=== PATIENT | male | born 1950 | race Caucasian/White ===

== ENCOUNTER → 2018-11-26 | Outpatient (CLI) | payer MEDICARE ==
--- NOTE | 2018-11-26 10:41 | Diagnostic Imaging Report ---
EXAMINATION: PA and lateral views of the chest. COMPARISON: None CLINICAL HISTORY: Cough DISCUSSION: The lungs are hyperinflated with increased AP diameter of the chest and flattening of the hemidiaphragms. No airspace consolidation, pleural effusion, or pneumothorax. Bilateral upper lobe pleural-parenchymal scar, right worse then left. Soft tissue density laterally within the right upper lung with questionable defect in the posterior lateral right third rib. Atherosclerotic calcification of the thoracic aorta. Otherwise normal cardiomediastinal contour. Regional skeletal structures are otherwise intact. IMPRESSION: Findings are suspicious for a soft tissue mass lesion in the lateral aspect of the right upper lobe with destructive changes of the adjacent third rib. CT scan of the chest with contrast is suggested for further evaluation. Background emphysematous changes. Findings and recommendations were communicated by telephone to Ms. Jernigan at Dr. Maya's office at 10:30 AM on 11/26/2018. Signed by: Dr. Wilfredo Joshi M.D. on 11/26/2018 10:37 AM
== END ==
LOC: RAD 09:36
PROVIDERS: ATTEND Internal Medicine
DX: R05 Cough (principal)
CPT/HCPCS: 71046

== ENCOUNTER → 2018-12-04 | Outpatient (CLI) | payer MEDICARE ==
[~2018-12-04] MED LIST: IOPAMIDOL 370 MG/ML 200 ML INFUS..BTL INJ ONE; SODIUM CHLORIDE 0.9% 50ML 50 ML ONE
[2018-12-04 12:15] LABS: BLOOD UREA NITROGEN 12 mg/dL (7-26); BUN/CREATININE RATIO 17 (6-25); CREATININE, SERUM 0.69 mg/dL (0.72-1.25); EST GLOMERULAR FILTRATION RATE > 60 ML/MIN (60-)
--- NOTE | 2018-12-04 13:35 | Diagnostic Imaging Report ---
EXAM: CT Chest WITH contrast INDICATION: Right upper lobe lung mass. COMPARISON: Chest radiograph 11/26/2018. TECHNIQUE: Chest was scanned utilizing a multidetector helical scanner from the lung apex through the level of the adrenal glands after administration of IV contrast. Coronal and sagittal reformations were obtained. Routine protocol was performed. IV CONTRAST: 100 mL of Isovue 370 RADIATION DOSE: Total DLP: 390 mGy*cm Dose modulation, iterative reconstruction, and/or weight based adjustment of the mA/kV was utilized to reduce the radiation dose to as low as reasonably achievable. COMPLICATIONS: None FINDINGS: LINES/ TUBES: None. LUNGS AND AIRWAYS: The central airways are patent. There is diffuse mild bronchial wall thickening. There are severe upper lobe predominant centrilobular emphysematous changes of lungs. Corresponding to the opacity seen in the right lung apex on chest radiograph, there are postsurgical changes of wedge resection with chain sutures. No evidence of mass lesion. Mild biapical pleural-parenchymal opacities, suggestive of prior granulomatous disease. Scattered bilateral pulmonary nodules including a 4 mm solid nodule in the right upper lobe on series 3, image 23; a 3 mm right upper lobe nodule along the right major fissure on image 77; a 4 mm subpleural nodule in the right middle lobe on image 102; a 4 mm groundglass nodule in the right lower lobe on image 108; a 4 mm nodular opacity in the left lower lobe on image 126; and a 4 mm left lower lobe nodule on image 115. There is a 4 mm calcified granuloma in the left upper lobe on image 76. PLEURA: The pleural spaces are clear. HEART AND MEDIASTINUM: The thyroid gland is normal. No mediastinal, hilar or axillary lymphadenopathy. 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 Atherosclerotic changes of the aortic arch. Ectatic ascending aorta measuring up to 3.5 cm. Extensive coronary atherosclerosis. No cardiomegaly or pericardial effusion. Small hiatal hernia. UPPER ABDOMEN: Limited contrast enhanced views of the upper abdomen. Indeterminate 9 mm hyperdense lesion in the right hepatic lobe on series 2, image 129. Calcified right hepatic and splenic granulomas. BONES: No acute osseous abnormality. No suspicious lytic or blastic lesions. There are post thoracotomy changes involving the right posterior lateral third rib, corresponding to findings on prior chest radiograph. SOFT TISSUES: Unremarkable. IMPRESSION: Post thoracotomy and wedge resection changes at the right lung apex corresponding to opacity on prior chest radiograph. No evidence of mass lesion. Severe emphysematous changes of the lungs with bilateral pulmonary nodules, measuring up to 4 mm. Suggest follow-up chest radiograph in 12 months to assess for stability. Indeterminate 9 mm hyperdense lesion in the right hepatic lobe. Suggest liver protocol MRI or CT for further evaluation. Signed by: Dr. Ford Gipson MD on 12/04/2018 1:32 PM
== END ==
LOC: CT 11:03
PROVIDERS: ATTEND Internal Medicine
DX: R91.8 Other nonspecific abnormal finding of lung field (principal)
CPT/HCPCS: 36415; 71260; 82565; 84520; Q9967

== ENCOUNTER 2023-05-30 08:55 | Inpatient (IN) | payer MEDICARE ==
[~2023-05-30] VITALS: Ht 172.7 cm; Wt 56.7 kg
[2023-05-30] VITALS (12 sets, daily range): BP systolic 148–175; BP diastolic 57–83; PULSE 72–89; RESP 15–24; TEMP 98.3–98.9; O2SAT 92–99
[2023-05-30] MEDS ORDERED: Morphine 4mg INJECTION 4 MG/ML INJ IV ONE (10:00)
[2023-05-30 10:22] LABS: BASOPHILS % 0.2 % (0.0-1.0); HEMATOCRIT 40.4 % (38.2-49.6); HEMOGLOBIN 14.2 g/dL (14.0-18.0); LYMPHOCYTES # (AUTO) 0.6 (1.0-3.2); LYMPHOCYTES % 3.3 % (18.0-39.1); MEAN CORPUSCULAR HEMOGLOBIN 32.3 pg (28-32); MEAN CORPUSCULAR HGB CONC 35.1 g/dL (31-35); MONOCYTES # (AUTO) 1.4 (0.2-0.8); MONOCYTES % 7.2 % (4.4-11.3); NEUTROPHILS # (AUTO) 17.5 (2.1-6.9); NEUTROPHILS % 88.9 % (38.7-80.0); PLATELET COUNT 281 x10e3/uL (140-360); RED BLOOD COUNT 4.39 x10e6/uL (4.3-5.7); RED CELL DISTRIBUTION WIDTH 12.9 % (11.7-14.4); WHITE BLOOD COUNT 19.62 x10e3/uL (4.8-10.8)
[2023-05-30 10:54] LABS: INR 0.98; PROTHROMBIN TIME 13.2 seconds (11.9-14.5)
[2023-05-30 10:55] LABS: PARTIAL THROMBOPLASTIN TIME 27.4 seconds (23.8-35.5)
[2023-05-30 11:03] LABS: ALBUMIN 4.2 g/dL (3.5-5.0); ALBUMIN/GLOBULIN RATIO 1.6 (0.8-2.0); ANION GAP 17.1 mmol/L (8-16); BILIRUBIN,TOTAL 0.7 mg/dL (0.2-1.2); CALCIUM 9.7 mg/dL (8.4-10.2); CREATININE, SERUM 0.83 mg/dL (0.72-1.25); POTASSIUM 4.1 mmol/L (3.5-5.1); TOTAL PROTEIN 6.8 g/dL (6.5-8.1)
[2023-05-30] MEDS ORDERED: SODIUM CHLORIDE 0.9% 100 ML ONE ×2 (11:13→15:23)
[2023-05-30] MEDS ORDERED: IOPAMIDOL 370 MG/ML 100 ML INFUS..BTL INJ ONE (11:13)
[2023-05-30] MEDS ORDERED: HEPARIN 25,000 UNIT DRIP IV ONE ×2 (13:39→15:30)
[2023-05-30] MEDS ORDERED: HEPARIN SOD (PORCINE) 5,000 UNIT/ML VIAL IV ONE ×2 (13:45)
[2023-05-30] MEDS ORDERED: ASPIRIN 81 MG CHEW TAB PO ONE (13:45)
[2023-05-30] MEDS ORDERED: HEPARIN 25,000 UNIT/D5W 250ML 1,000 UNIT in DEXTROSE 5% 250ML 250 ML IV SCH (14:00)
[2023-05-30] MEDS ORDERED: ONDANSETRON HCL INJ 2MG/ML 2ML 2 MG/ML VIAL IV PRN (14:00)
[2023-05-30] MEDS ORDERED: HEPARIN SOD (PORCINE) 1000 UNIT/ML 30ML ONE (14:15)
[2023-05-30] MEDS ORDERED: SODIUM CHLORIDE 0.9% 1000ML 1,000 ML ONE (14:15)
[2023-05-30] MEDS ORDERED: HEPARIN SOD/SOD CHLORIDE 1,000 ML ONE ×2 (14:17→14:31)
[2023-05-30] MEDS ORDERED: FENTANYL CITRATE/PF 100MCG/2 ML INJ ONE (14:30)
[2023-05-30] MEDS ORDERED: MIDAZOLAM HCL 2 MG/2 ML VIAL ONE (14:30)
[2023-05-30] MEDS ORDERED: LIDOCAINE HCL 2% LOCAL 20 ML VIAL ONE (14:31)
[2023-05-30] MEDS ORDERED: ALTEPLASE RECOMBINANT 2 MG/2 ML VIAL ONE (15:22)
[2023-05-30] MEDS ORDERED: ALTEPLASE 50 MG/VIAL (29 MILLION IU) IV SCH (16:15)
[2023-05-30] MEDS ORDERED: [UNRECOGNIZED DRUG - OTHER] IV SCH (17:00)
[2023-05-30] MEDS ORDERED: DEXTROSE 5% IV SCH (17:00)
[2023-05-30] MEDS ORDERED: HEPARIN IV SCH (17:00)
[2023-05-30] MEDS ORDERED: ZOLPIDEM TARTRATE 5 MG TAB PO PRN (17:15)
[2023-05-30] MEDS: Morphine 4mg INJECTION 4 MG/ML INJ IV PRN ×2 (17:38→22:37)
[2023-05-30] MEDS ORDERED: HYDRALAZINE HCL 20 MG/ML VIAL IV PRN (20:00)
[2023-05-30] MEDS ORDERED: CHLORDIAZEPOXIDE HCL 10 MG CAP PO PRN (20:00)
[2023-05-30] MEDS ORDERED: ENALAPRILAT DIHYDRATE 1.25 MG/ML 2ML VIAL IV PRN ×2 (20:00→20:30)
[2023-05-30] MEDS: SODIUM CHLORIDE 0.45% 1,000 ML IV SCH (20:38)
[2023-05-30] MEDS: METOPROLOL TARTRATE 25 MG TAB PO SCH (20:41)
[2023-05-31] VITALS (30 sets, daily range): BP systolic 109–160; BP diastolic 62–99; PULSE 59–101; RESP 17–27; TEMP 97.9–99; O2SAT 95–100
[2023-05-31] MEDS: ALTEPLASE RECOMBINANT 8 MG in DEXTROSE 5% 250ML 250 ML IV SCH ×2 (00:02→08:01)
[2023-05-31 00:53] LABS: INR 1.14; PROTHROMBIN TIME 14.9 seconds (11.9-14.5)
[2023-05-31 00:55] LABS: PARTIAL THROMBOPLASTIN TIME 93.2 seconds (23.8-35.5)
[2023-05-31] MEDS: SODIUM CHLORIDE 0.45% 1,000 ML IV SCH ×2 (05:07→16:19)
[2023-05-31] MEDS: Morphine 4mg INJECTION 4 MG/ML INJ IV PRN ×2 (05:11→21:33)
[2023-05-31 06:13] LABS: BASOPHILS # (AUTO) 0.1 (0.0-0.1); BASOPHILS % 0.4 % (0.0-1.0); EOSINOPHILS % 0.2 % (0.0-6.0); HEMOGLOBIN 13.2 g/dL (14.0-18.0); LYMPHOCYTES # (AUTO) 0.9 (1.0-3.2); LYMPHOCYTES % 7.1 % (18.0-39.1); MEAN CORPUSCULAR HEMOGLOBIN 31.9 pg (28-32); MEAN CORPUSCULAR HGB CONC 34.7 g/dL (31-35); MEAN CORPUSCULAR VOLUME 91.8 fL (81-99); MONOCYTES # (AUTO) 1.1 (0.2-0.8); MONOCYTES % 8.9 % (4.4-11.3); NEUTROPHILS # (AUTO) 10.5 (2.1-6.9); PLATELET COUNT 207 x10e3/uL (140-360); RED BLOOD COUNT 4.14 x10e6/uL (4.3-5.7); RED CELL DISTRIBUTION WIDTH 13.1 % (11.7-14.4); WHITE BLOOD COUNT 12.63 x10e3/uL (4.8-10.8)
[2023-05-31 06:46] LABS: CHOL/HDL RATIO 3.4 (3.9-4.7); MAGNESIUM 2.1 MG/DL (1.3-2.1)
[2023-05-31 07:02] LABS: THYROID STIMULATING HORMONE 0.784 uIU/mL (0.350-4.940)
[2023-05-31 07:28] LABS: ALBUMIN 3.7 g/dL (3.5-5.0); ALBUMIN/GLOBULIN RATIO 1.9 (0.8-2.0); ANION GAP 15.4 mmol/L (8-16); BILIRUBIN,TOTAL 0.8 mg/dL (0.2-1.2); CALCIUM 8.4 mg/dL (8.4-10.2); CREATININE, SERUM 0.73 mg/dL (0.72-1.25); POTASSIUM 4.4 mmol/L (3.5-5.1); TOTAL PROTEIN 5.7 g/dL (6.5-8.1)
[2023-05-31 07:59] LABS: INR 1.05; PROTHROMBIN TIME 13.9 seconds (11.9-14.5)
[2023-05-31] MEDS: METOPROLOL TARTRATE 25 MG TAB PO SCH ×2 (08:43→16:21)
[2023-05-31] MEDS ORDERED: HEPARIN SOD (PORCINE) 1000 UNIT/ML 30ML ONE (13:33)
[2023-05-31] MEDS ORDERED: LIDOCAINE HCL 2% LOCAL 20 ML VIAL ONE (13:33)
[2023-05-31] MEDS ORDERED: HEPARIN SOD/SOD CHLORIDE 2,000 ML ONE (13:34)
[2023-05-31] MEDS ORDERED: IOPAMIDOL 370 MG/ML 100 ML INFUS..BTL INJ ONE (13:34)
[2023-05-31] MEDS ORDERED: SODIUM CHLORIDE 0.9% 1000ML 1,000 ML ONE (13:34)
[2023-05-31] MEDS ORDERED: FENTANYL CITRATE/PF 100MCG/2 ML INJ ONE (13:35)
[2023-05-31] MEDS ORDERED: NITROGLYCERIN/D5W 200 MCG/ML 250 ML ONE (13:35)
[2023-05-31] MEDS ORDERED: MIDAZOLAM HCL 2 MG/2 ML VIAL ONE (13:35)
[2023-05-31] MEDS ORDERED: Vancomycin IV 1 GM VIAL ONE (14:21)
[2023-05-31] MEDS ORDERED: SODIUM CHLORIDE 0.9% 250ML 250 ML ONE (14:22)
[2023-05-31] MEDS ORDERED: HEPARIN 25,000 UNIT/D5W 250ML 1,000 UNIT in DEXTROSE 5% 250ML 250 ML IV SCH (15:45)
[2023-05-31] MEDS ORDERED: ATORVASTATIN 20 MG TAB PO SCH (21:00)
== END 2023-05-31 22:00 | disposition short-term general hospital (02) | DRG 254 ==
LOC: ER 09:02 → ERHOLD 14:03 → ER 14:12 → ICU 17:06
PROVIDERS: ADMIT Internal Medicine; ATTEND Internal Medicine
PROC: 047L3ZZ Dilation of Left Femoral Artery, Percutaneous Approach (ICD-10-PCS; principal; 2023-05-30)
PROC: 04H Lower Arteries, Insertion (ICD-10-PCS; 2023-05-30)
PROC: 3E05317 Introduction of Other Thrombolytic into Peripheral Artery, Percutaneous Approach (ICD-10-PCS; 2023-05-30)
PROC: B41G1ZZ Fluoroscopy of Left Lower Extremity Arteries using Low Osmolar Contrast (ICD-10-PCS; 2023-05-30)
DX: I74.3 Embolism and thrombosis of arteries of the lower extremities (principal); I70.222 Atherosclerosis of native arteries of extremities with rest pain, left leg; I10 Essential (primary) hypertension; J44.9 Chronic obstructive pulmonary disease, unspecified; D72.829 Elevated white blood cell count, unspecified; E78.5 Hyperlipidemia, unspecified; R73.9 Hyperglycemia, unspecified
CPT/HCPCS: 36415; 37211; 37214; 37224; 37228; 75625; 75635; 75710; 76937; 80053; 80061; 82607; 83036; 83735; 84443; 85025; 85610; 85730; 94799; 99152; 99153; 99284; C1725; C1766; C1769; C1887; C1894; C2623; J0690; J1644; J2001; J2250; J2270; J2997; J7030; J7050; Q9967